=== PATIENT | female | born 1975 | race African-American/Black ===

== ENCOUNTER 2016-05-20 17:40 | Emergency (ER) | payer BC ==
[~2016-05-20] VITALS: Ht 172.7 cm; Wt 93.0 kg
[2016-05-20 17:53] VITALS: BP 128/81
== END 2016-05-20 19:20 | disposition home or self-care (01) ==
LOC: ER 18:35
DX: S16.1XXA Strain of muscle, fascia and tendon at neck level, initial encounter (principal); S39.012A Strain of muscle, fascia and tendon of lower back, initial encounter; V43.52XA Car driver injured in collision with other type car in traffic accident, initial encounter; Y93.89 Activity, other specified; Y92.488 Other paved roadways as the place of occurrence of the external cause; Z98.890 Other specified postprocedural states
CPT/HCPCS: 99283

== ENCOUNTER 2016-07-15 19:19 | Emergency (ER) | payer BC ==
[~2016-07-15] VITALS: Ht 172.7 cm; Wt 94.0 kg
[2016-07-15 22:40] VITALS: BP 128/84
== END 2016-07-15 23:00 | disposition home or self-care (01) ==
LOC: ER 22:55
DX: S89.82XA Other specified injuries of left lower leg, initial encounter (principal); X58.XXXA Exposure to other specified factors, initial encounter; Y93.89 Activity, other specified; Y92.89 Other specified places as the place of occurrence of the external cause; Z98.890 Other specified postprocedural states
CPT/HCPCS: 99282

== ENCOUNTER 2017-04-03 05:46 | Emergency (ER) | payer BC ==
[~2017-04-03] VITALS: Ht 172.7 cm; Wt 100.0 kg
[2017-04-03] MEDS ORDERED: ONDANSETRON HCL 4MG/2ML VIAL IV STA (07:24)
[2017-04-03] MEDS ORDERED: KETOROLAC 30MG/ML VIAL IV STA (07:24)
[2017-04-03 07:44] LABS: BASOPHILS % 0.2 % (0.0-2.0); EOSINOPHILS % 0.6 % (0.0-5.0); HEMATOCRIT. 32.8 % (36.0-48.0); HEMOGLOBIN. 10.1 g/dL (12.0-16.0); LYMPHOCYTES % 17.1 % (20.0-50.0); MEAN CORPUSCULAR HEMOGLOBIN 21.8 pg (28.0-32.0); MEAN CORPUSCULAR VOLUME 71.2 fL (81.0-99.0); MEAN PLATELET VOLUME 6.6 fl (7.4-10.4); MONOCYTES % 6.5 % (2.0-8.0); NEUTROPHILS % 75.6 % (40.0-76.0); PLATELET 316 x1000/uL (130-400); RED BLOOD CELL COUNT 4.61 mill/uL (4.2-5.4)
[2017-04-03 07:48] LABS: PROTHROMBIN TIME 10.7 sec (9.4-11.6)
[2017-04-03 07:55] LABS: CARBON DIOXIDE 29 mEq/L (21-32); CHLORIDE 105 mEq/L (98-107)
[2017-04-03 08:09] LABS: CLARITY URINE CLEAR (CLEAR); COLOR URINE YELLOW (YELLOW); KETONES URINE 2+ (NEGATIVE); LEUKOCYTE ESTERASE URINE NEGATIVE (NEGATIVE); NITRITE URINE NEGATIVE (NEGATIVE); OCCULT BLOOD URINE TRACE (NEGATIVE); PROTEIN URINE NEGATIVE (NEGATIVE); SPECIFIC GRAVITY URINE 1.022 (1.005-1.030)
[2017-04-03 08:55] VITALS: BP 122/78
== END 2017-04-03 10:38 | disposition home or self-care (01) ==
LOC: ER 05:46
DX: R10.9 Unspecified abdominal pain (principal); Z98.890 Other specified postprocedural states
CPT/HCPCS: 36415; 80053; 81001; 81025; 83690; 85025; 85610; 96374; 96375; 99284; J1885; J2405; Z7610